=== PATIENT | female | born 1945 | race Caucasian/White ===

== ENCOUNTER → 2017-01-02 | Outpatient (CLI) | payer MEDICARE, OTHER ==
--- NOTE | 2017-01-02 09:46 | CT ---
EXAM DESCRIPTION: Chest w/Contrast CLINICAL HISTORY: OTHER DISORDERS OF LUNG COMPARISON: November 09, 2015. TECHNIQUE: Post contrasted multidetector CT imaging of the chest. Multiplanar reconstructions were provided. FINDINGS: No axillary or supraclavicular lymphadenopathy. There are a few small lymph nodes seen within the mediastinum. The pulmonary artery is enlarged measuring 3.1 cm in diameter. The ascending aorta is near aneurysmal measuring 3.8 cm in diameter. Coronary artery disease noted. No pericardial disease. The heart size is normal. Trachea is midline and unremarkable. Moderate paraseptal and centrilobular emphysema. Evidence of prior granulomatous disease. Seen within the lateral aspect of the right lower lobe is a soft tissue nodule abutting the pleura. The prior study it measured 16 mm in diameter and on today's exam it measures 16 mm in diameter. Upper abdomen demonstrates no acute findings. IMPRESSION: All findings are stable when compared to November 09, 2015. There remains evidence of prior granulomatous disease with a combination of soft tissue nodules and calcified nodules. The largest nodule is seen within the right lower lobe and measures 16 mm in diameter. This has remained stable. Moderate emphysema noted along with probable pulmonary artery hypertension. Near aneurysmal dilatation of the ascending aorta. It measures 3.8 cm in diameter. 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
== END | disposition home or self-care (01) ==
LOC: CT 08:17
PROVIDERS: ATTEND Nurse Practitioner Family
DX: J98.4 Other disorders of lung (principal)

== ENCOUNTER → 2017-02-18 | Outpatient (CLI) | payer MEDICARE, OTHER | LOC: GMA 22:11 | PROVIDERS: ATTEND Nurse Practitioner Family | DX: N39.0 Urinary tract infection, site not specified (principal) ==

== ENCOUNTER 2017-02-20 11:06 | Inpatient (IN) | payer MEDICARE, OTHER ==
[2017-02-20] MEDS ORDERED: IPRATROPIUM/ALBUTEROL 3 ML VIAL NEB ONE (11:30)
--- NOTE | 2017-02-20 11:53 | RAD ---
Study: Frontal and Lateral Views of the Chest. Indication: sob, cough Comparison: CT January 02, 2017. Findings: Mildly megaly. Atherosclerosis aorta. Emphysema. Calcified granulomas throughout the lungs. Right lung base nodule redemonstrated and better characterized on the previous CT. It appears grossly stable. No new consolidations, pleural effusion, pneumothorax. Degenerative changes of the spine noted. Osteopenia. If this is a new finding, DEXA scan recommended as well as evaluation for possible osteoporosis treatment. Electronically signed by: Dann Gomez MD 02/20/2017 11:52 AM CDT
[2017-02-20] MEDS ORDERED: cefTRIAXone SODIUM 1 GM in SODIUM CHL 0.9% 50ML MIN-BAG+ 50 ML IVPB ONE (12:54)
[2017-02-20] MEDS ORDERED: AZITHROMYCIN IV 500 MG in SODIUM CHLORIDE 0.9% 250ML 250 ML IVPB ONE (12:55)
[2017-02-20] MEDS ORDERED: methylPREDNISolone SODIUM SUC 40 MG/ML VIAL IV ONE (12:55)
--- NOTE | 2017-02-20 13:02 | ED.PDOC ---
History of Present Illness - General Chief Complaint: Respiratory Problem Stated Complaint: shortness of breath,cough Time Seen by Provider: 02/20/17 11:07 Source: patient Exam Limitations: no limitations - History of Present Illness Initial Comments: the patient is a 72-year-old female presenting to the emergency room secondary to coughing episodes along with shortness of breath and mild generalized weakness progressive over the last week. She saw her primary care doctor approximately 36 hours ago and received a steroid shot and a prescription for Omnicef which she has started. She is not reporting fevers. She is reporting significant coughing spells. Her oxygen saturations dropped down to 82-84% with activity. At rest she is 88-90% sitting up. Lying back that drops down lower. She does have shortness of breath with activity. No chest pain. No syncope. She does have a moderately productive sputum. She does have a history of COPD but does not have oxygen at home. On exam she does have scattered wheezes. She also has rails consistent with pneumonia to the left midlung possibly in the lingular area. There is mild increased work of breathing. Timing/Duration: unsure Severity: moderate Improving Factors: nothing Worsening Factors: nothing Associated Symptoms: cough, loss of appetite, malaise, shortness of breath Allergies/Adverse Reactions: Allergies NO KNOWN ALLERGY Allergy (Verified 01/21/13 14:58) Home Medications: Ambulatory Orders Citalopram Hydrobromide [Celexa] 20 mg PO DAILY 10/18/13 Zolpidem Tartrate [Ambien] 10 mg PO PRN 10/18/13 Albuterol Inhaler [Ventolin Hfa Inhaler] 1 puff INH PRN 12/31/15 Alendronate Sodium [Fosamax] 70 mg PO WKLY 12/31/15 Ascorbic Acid [Vitamin C] 500 mg PO DAILY 12/31/15 B-Complex Vitamins [Vitamin B Complex] 1 tab PO DAILY 12/31/15 Budesonide Nebs [Pulmicort Respules] 1 ml INH BID 12/31/15 Calcium Carbonate-Vitamin D [Calcium + D3 600-200 mg-Unit] 1 tab PO DAILY Meloxicam [Mobic] 15 mg PO DAILY 12/31/15 Probiotic Product [Probiotic Daily] 1 cap PO DAILY 12/31/15 Vitamin E 400 unit PO BID 12/31/15 Review of Systems - Review of Systems Constitutional: States: malaise, weakness EENTM: States: no symptoms reported Respiratory: States: cough, short of breath, wheezing Cardiology: States: no symptoms reported Gastrointestinal/Abdominal: States: no symptoms reported Genitourinary: States: no symptoms reported Musculoskeletal: States: no symptoms reported Skin: States: no symptoms reported Neurological: States: no symptoms reported Endocrine: States: no symptoms reported All other Systems: No Change from Baseline Past Medical History (General) - Patient Medical History Hx Asthma: No Hx of COPD: Yes Hx Congestive Heart Failure: No Hx Hypertension: No Hx Diabetes: No Hx MRSA: Yes - Wound 2013 MRSA Source:: Wound Surgical History: no surgical history - Vaccination History Hx Tetanus, Diphtheria Vaccination: Yes Hx Influenza Vaccination: Yes Hx Pneumococcal Vaccination: Yes - Social History Hx Tobacco Use: Yes Family Medical History - Family History Mother Family History: No Known Physical Exam - Physical Exam General Appearance: Alert, Ill Appearing Eye Exam: bilateral normal Ears, Nose, Throat: normal ENT inspection, normal pharynx Neck: non-tender, full range of motion, supple Respiratory: chest non-tender, other - mild increased work of breathing. Rails to the left midlung. Scattered rhonchi and fine wheezes. Moderately decreased air movement bilaterally. Cardiovascular/Chest: normal peripheral pulses, regular rate, rhythm, no edema Peripheral Pulses: radial,right: 2+, radial,left: 2+, dorsalis pedis,right: 2+, dorsalis pedis,left: 2+ Gastrointestinal/Abdominal: non tender, soft Rectal Exam: deferred Back Exam: normal inspection, no CVA tenderness, no vertebral tenderness Extremity: normal range of motion, non-tender, normal inspection, no pedal edema , no calf tenderness, normal capillary refill Neurologic: alert, normal mood/affect, oriented x 3 Skin Exam: normal color Comments: Vital Signs - 24 hr 02/20/17 02/20/17 02/20/17 11:24 11:49 12:04 Temperature 96.7 F L Pulse Rate [ 82 75 Left Brachial] Respiratory 20 20 20 Rate Blood Pressure 123/89 146/79 [Left Arm] O2 Sat by Pulse 89 L 100 Oximetry Progress - Progress Progress: 02/20/17 13:03 the patient is a 72-year-old female presenting with what appears to be a COPD exacerbation and possibly the start of a left midlung pneumonia. The patient is being placed on Rocephin and azithromycin. She received a DuoNeb treatment. She has been placed on oxygen. Blood cultures have been performed. Sputum culture is pending. The patient will be admitted due to oxygen requirement and the fact that she has failed outpatient treatment. Monitor closely. - Results/Orders Results/Orders: Laboratory Tests 02/20/17 02/20/17 11:50 11:50 WBC 8.5 RBC 4.48 Hgb 13.9 Hct 41.5 MCV 92.5 MCH 31.0 MCHC 33.5 RDW 12.5 Plt Count 242 MPV 7.3 L Absolute Neuts (auto) 4.70 Absolute Lymphs (auto) 1.30 Absolute Monos (auto) 0.70 Absolute Eos (auto) 1.80 H Absolute Basos (auto) 0.10 Neutrophils % 55.1 Lymphocytes % 14.7 L Monocytes % 7.9 Eosinophils % 21.4 H Basophils % 0.9 Sodium 137 Potassium 3.8 Chloride 100 L Carbon Dioxide 30 Anion Gap 10.8 L BUN 12 Creatinine 0.60 BUN/Creatinine Ratio 20.0 Random Glucose 104 Serum Osmolality 273.9 L Calcium 9.3 Total Bilirubin 0.4 AST 24 ALT 20 Alkaline Phosphatase 56 Creatine Kinase 194 H CK-MB (CK-2) 4.1 CK-MB (CK-2) % 2.11 Troponin I < 0.02 B-Natriuretic Peptide 8.6 Serum Total Protein 6.7 Albumin 4.1 Globulin 2.6 Albumin/Globulin Ratio 1.6 chest x-ray is consistent with COPD. Departure - Departure Clinical Impression: COPD with acute exacerbation Pneumonia Qualifiers: Pneumonia type: due to unspecified organism Laterality: left Lung location: unspecified part of lung Qualified Code(s): J18.9 - Pneumonia, unspecified organism Disposition: Admit Patient Departure Forms: ED Discharge - Pt. Copy, Patient Portal Self Enrollment Referrals: Jarrod Vazquez MD [Primary Care Provider] - 1-2 Weeks Home Medications: Ambulatory Orders Citalopram Hydrobromide [Celexa] 20 mg PO DAILY 10/18/13 Zolpidem Tartrate [Ambien] 10 mg PO PRN 10/18/13 Albuterol Inhaler [Ventolin Hfa Inhaler] 1 puff INH PRN 12/31/15 Alendronate Sodium [Fosamax] 70 mg PO WKLY 12/31/15 Ascorbic Acid [Vitamin C] 500 mg PO DAILY 12/31/15 B-Complex Vitamins [Vitamin B Complex] 1 tab PO DAILY 12/31/15 Budesonide Nebs [Pulmicort Respules] 1 ml INH BID 12/31/15 Calcium Carbonate-Vitamin D [Calcium + D3 600-200 mg-Unit] 1 tab PO DAILY Meloxicam [Mobic] 15 mg PO DAILY 12/31/15 Probiotic Product [Probiotic Daily] 1 cap PO DAILY 12/31/15 Vitamin E 400 unit PO BID 12/31/15 Decision To Admit - Decistion To Admit Decision to Admit Reason: Medical Nature Decision to Admit Date: 02/20/17 Decision to Admit Time: 13:04
[2017-02-20] MEDS ORDERED: SODIUM CHL 0.9% 50ML MIN-BAG+ 50 ML IVPB ONE (13:07)
[2017-02-20] MEDS ORDERED: cefTRIAXone SODIUM 1 GM VIAL ONE (13:07)
--- NOTE | 2017-02-20 13:31 | HP ---
SUPERVISING PHYSICIAN: Marko Tate M.D. CHIEF COMPLAINT: Shortness of breath and cough. HISTORY OF PRESENT ILLNESS: Ms. Sharp is a 72 year-old female patient that presented to the Emergency Department complaining of a severe coughing episode that resulted in severe shortness of breath along with generalized weakness that had progressively worsened over the last week. She was seen in the clinic on Thursday the for similar symptoms for which she was given an injection of Rocephin and started on a course of antibiotics to include Omnicef. She notes that she has not had any fevers but she is continuing to have severe coughing spells with now purulent sputum. In the Emergency Room, her oxygenation levels showed to be anywhere from 82 to 84% with activity on room air. She denied any chest pains or syncopal episodes. She does have a significant history of chronic obstructive pulmonary disease but currently does not wear oxygen at home. She does smoke tobacco currently but is unable to do so in the last week due to her current illness. It was noted in the Emergency Department that her O2 saturations on room air was in the 80s and she was having some scattered inspiratory and expiratory wheezing. Chest x-ray completed per radiology interpretation demonstrated no new consolidations or pleural effusions or pneumothoraxes. The patient was afebrile and had a white count of 8.5 without a left shift. Again, the patient has a moderate chronic obstructive pulmonary disease and has been failing to respond to outpatient treatment therapy, including Albuterol treatments and antibiotics. The patient now is to be admitted to the Medical/Surgical floor for continuation of treatment and further evaluation for concern for early development of pneumonia, likely community acquired. She was admitted in stable condition. PAST MEDICAL HISTORY: 1. Congestive heart failure, diastolic, unknown etiology, likely secondary to underlying chronic obstructive pulmonary disease with last documented echocardiogram in November 2015 showing an ejection fraction of 60% 2. Chronic obstructive pulmonary disease. 3. Diverticulosis. 4. Osteoarthritis. 5. Menopause. 6. Seasonal allergies. 7. Chronic insomnia. PAST SURGICAL HISTORY: 1. Bilateral cataract removal in 2005 with lens implants. 2. Tubal ligation. 3. Tonsillectomy and adenoidectomy as a child. HOME MEDICATIONS: 1. Ambien 10 mg daily. 2. Celexa 20 mg daily. 3. Pulmicort Respules 1 mL inhaled twice daily. 4. Albuterol inhaler 1 puff inhaled p.r.n. ALLERGIES: NO KNOWN DRUG ALLERGIES. FAMILY HISTORY: Father at age 91 secondary to kidney failure. Mother at age 76, unknown reasons. 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 She lives in [place] and is . She currently smokes tobacco anywhere from 1/2 to 1 pack per day and only drinks on an occasional social basis. REVIEW OF SYSTEMS: CONSTITUTIONAL: Notes that she has had some general malaise and weakness. HEENT: Notes that she has some nasal congestion with sinus drainage and some problems with seasonal allergies. RESPIRATORY: As noted in the history of present illness, significant for increasing cough, shortness of breath, wheezing and productive sputum. CARDIOVASCULAR: Denies any chest pains, palpitations or syncopal episodes. GASTROINTESTINAL: Denies any nausea, vomiting or diarrhea. GENITOURINARY: Was recently treated for a urinary tract infection in the last week, but cultures showed to be without any growth. She denies any dysuria or other urinary symptoms. NEUROLOGIC: She denies any changes in vision, headaches or syncopal episodes. PHYSICAL EXAMINATION: VITAL SIGNS: Temperature 96.7, pulse 82, blood pressure 120/89, respirations showing 20 to 22 with some obvious shortness of breath and wheezing with O2 saturations showing 88 to 89% on room air. Admission weight 75.5 kg. GENERAL: The patient appears to be somewhat anxious but in no acute distress on admission to the Medical/Surgical floor. She does appear ill-appearing but is alert. HEENT: Tympanic membranes bilaterally are clear. Oropharynx is pink and moist without any lesions. NECK: No jugular venous distention. Neck is supple, non-tender with full range of motion. CHEST: Notable for increased work of breathing with some rales to the left upper mid lung with some scattered rhonchi and faint wheezing noted more so on expiratory than inspiratory with some moderate decreased air movement bilaterally. CARDIOVASCULAR: Regular rate and rhythm without appreciable murmurs, gallops, or rubs. ABDOMEN: Soft, non-tender. Positive bowel sounds. EXTREMITIES: No clubbing, cyanosis or edema. NEUROLOGIC: She is alert and oriented times three. LABORATORY: CBC shows a white count 8.5, hemoglobin 13.9, hematocrit 41.5, platelet count 242,000. Differential shows to be without a left shift, however there is noted elevated lymphocytes and eosinophils. Chemistries show normal electrolytes with potassium 3.8, BUN 12, creatinine 0.6, glucose 104, calcium 9.3, magnesium 2.0. Liver functions showed to be within normal limits. Cardiac enzymes showed troponin less than 0.02. BNP was 8.6. Urinalysis showed greater than 3 of protein, moderate amount of blood. Microscopic revealed 3 to 5 RBCs, otherwise within normal limits. MICROBIOLOGY: MRSA surveillance culture is pending. Blood culture is pending. Sputum culture is pending. RADIOLOGY: Per radiology interpretation shows a right lung base nodule that was re-demonstrated on previous CT, appears to be grossly stable. There is no new consolidation, pleural effusions or pneumothoraxes. There was noted degenerative changes within the spine. ASSESSMENT: 1. Acute exacerbation of chronic obstructive pulmonary disease having failed to respond to outpatient treatment plan with concerns for early pneumonia , specifically lingular with the patient having been recently treated with antibiotics. 2. Hypoxemia as noted on initial admission vital signs likely contributed to early development of pneumonia and exacerbation of her chronic obstructive pulmonary disease as noted in number 1. 3. Eosinophilia noted on differential possibly secondary to chronic seasonal allergies. 4. History of diverticulosis without any current evidence of acute diverticulitis. 5. Osteoarthritis. 6. Osteopenia as noted on radiographic studies with the patient being of menopausal age and having previously been treated with Fosamax. 7. Seasonal allergies, chronic. 8. Chronic insomnia. 9. Chronic tobacco abuse. 10. Depression and anxiety. PLAN: The patient will be admitted to the Medical/Surgical floor for continuation of treatment for concerns for development of early pneumonia, likely community acquired as the patient has failed to respond to outpatient treatment plan. She will be started on antibiotics to include Rocephin and Azithromycin parenterally along with aggressive pulmonary hygiene to include DuoNeb treatments and chronic physiotherapy. She will also be started on some Mucinex cough suppressant with Tessalon Perles. Will start her on DVT prophylaxis and continue her home medications once they have been updated and verified in the medical records. Anticipate length of stay to be 2 to 3 days. Until then, will continue to monitor the patient closely and treat appropriately. #[id number] [facility]
[2017-02-20] MEDS ORDERED: AZITHROMYCIN IV 500 MG VIAL IVPB ONE (13:47)
[2017-02-20] MEDS ORDERED: SODIUM CHLORIDE 0.9% 250ML 250 ML ONE (13:47)
[2017-02-20] MEDS ORDERED: ACETAMINOPHEN 325 MG TAB PO PRN (14:52)
[2017-02-20] MEDS ORDERED: SODIUM CHLORIDE 0.9% (FLUSH) 10 ML SYG IV PRN (14:52)
[2017-02-20] MEDS ORDERED: ALBUTEROL SULFATE 2.5 MG/3 ML VIAL NEB PRN (14:52)
[2017-02-20] MEDS ORDERED: IV SET AND CAP CHANGE INJ INJ SCH (15:00)
--- NOTE | 2017-02-20 15:04 | PCM.CORE ---
Physician DVT/VTE - Nurse DVT Assessment & Total Each Risk Factor Represents 3 Points: Medical PT with Hx of CO, CHF, Severe infection/sepsis Each Risk Factor Represents 2 Points: Age 60-74 Each Risk Factor is 1 Point: Hx of Inflammatory Bowel Disease, Obesity (BMI >25) , Serious Lung disease (pnemonia <1month, COPD, emphysema,etc) DVT Assessment Score: 8 - 5 or more Very High Risk Treatments: Early Ambulation *, Sequential Compression Device Pharmacological: Enoxaparin 40mg SQ Daily
[2017-02-20] MEDS: IPRATROPIUM/ALBUTEROL 3 ML VIAL INH SCH ×2 (16:19→20:43)
[2017-02-20] MEDS ORDERED: methylPREDNISolone SODIUM SUC 40 MG/ML VIAL IV SCH (18:00)
[2017-02-20] MEDS ORDERED: PANTOPRAZOLE SODIUM IV 40 MG VIAL ONE (19:53)
[2017-02-20] MEDS ORDERED: ENOXAPARIN SODIUM 40 MG/0.4 ML SYG SUBCU ONE (19:53)
[2017-02-20] MEDS ORDERED: guaiFENesin ER TAB 600 MG TAB ONE (19:53)
[2017-02-20] MEDS: BIFIDOBACTERIUM INFANTIS 4 MG CAP PO SCH (20:30)
[2017-02-20] MEDS: guaiFENesin ER TAB 600 MG TAB PO SCH (20:31)
[2017-02-20] MEDS: ENOXAPARIN SODIUM 40 MG/0.4 ML SYG SUBCU SCH (20:31)
[2017-02-20] MEDS: BUDESONIDE NEBS 0.25 MG/2 ML INH INH SCH (20:43)
[2017-02-20] MEDS: SODIUM CHLORIDE 0.9% (FLUSH) 10 ML SYG IV SCH (20:44)
[2017-02-20] MEDS: ZOLPIDEM TARTRATE 10 MG TAB PO PRN (21:36)
[2017-02-20] MEDS: BENZONATATE PERLES 100 MG CAP PO PRN (21:36)
[2017-02-21] MEDS: methylPREDNISolone SODIUM SUC 40 MG/ML VIAL IV SCH ×4 (00:46→18:51)
[2017-02-21] MEDS: PANTOPRAZOLE SODIUM IV 40 MG VIAL IV SCH (06:09)
--- NOTE | 2017-02-21 06:37 | RAD ---
EXAM: Two view chest. INDICATION: Chest pain. COMPARISON: Chest x-ray: 02/20/2017. FINDINGS: Cardiac silhouette: Unremarkable. Angely: Unremarkable. Lobar consolidation: None. Pleural effusion: None. Pneumothorax: None. Other: There are scattered calcified granulomas. The lungs are emphysematous. Bones: Unremarkable. Other: None. IMPRESSION: Emphysematous appearing lungs Electronically signed by: Mauricio Fitzgerald MD 02/21/2017 6:35 AM CDT
[2017-02-21] MEDS: IPRATROPIUM/ALBUTEROL 3 ML VIAL INH SCH ×5 (07:20→20:37)
[2017-02-21] MEDS: BUDESONIDE NEBS 0.25 MG/2 ML INH INH SCH ×3 (07:20→20:37)
[2017-02-21] MEDS ORDERED: CITALOPRAM HBR 20 MG TAB ONE (07:23)
[2017-02-21] MEDS: CITALOPRAM HBR 20 MG TAB PO SCH (08:44)
[2017-02-21] MEDS: guaiFENesin ER TAB 600 MG TAB PO SCH ×2 (08:44→21:00)
[2017-02-21] MEDS: BIFIDOBACTERIUM INFANTIS 4 MG CAP PO SCH (08:44)
[2017-02-21] MEDS: SODIUM CHLORIDE 0.9% (FLUSH) 10 ML SYG IV SCH ×2 (08:44→21:00)
[2017-02-21] MEDS ORDERED: cefTRIAXone SODIUM 1 GM VIAL ONE (12:04)
[2017-02-21] MEDS ORDERED: SODIUM CHL 0.9% 50ML MIN-BAG+ 50 ML IVPB ONE (12:04)
[2017-02-21] MEDS: cefTRIAXone SODIUM 1 GM in SODIUM CHL 0.9% 50ML MIN-BAG+ 50 ML IVPB SCH (12:23)
[2017-02-21] MEDS ORDERED: SODIUM CHLORIDE 0.9% 250ML 250 ML ONE (12:42)
[2017-02-21] MEDS ORDERED: AZITHROMYCIN IV 500 MG VIAL IVPB ONE (12:43)
[2017-02-21] MEDS: AZITHROMYCIN IV 500 MG in SODIUM CHLORIDE 0.9% 250ML 250 ML IVPB SCH (13:56)
--- NOTE | 2017-02-21 15:28 | PN ---
DATE: 02/21/17 SUPERVISING PHYSICIAN: Jarrod Vazquez M.D. SUBJECTIVE: The patient is doing better today. She feels like she is breathing much better compared to admission. She remains afebrile. She has had no nausea, vomiting or diarrhea. She has actually been ambulating without any difficulty, although her admission studies show that she does desaturate somewhat. Please refer to that report for full details. OBJECTIVE: VITAL SIGNS: Temperature 98.7, pulse 104, blood pressure 133/81, respirations 20, satting 89 to 90% on room air with nasal cannula showing 92% at 2 liters. I's and O's show a positive balance of 340 with 1040 in, 700 out. Weight is 75.5 kg. GENERAL: The patient appears to be in no distress. She is alert. CHEST: Lungs are much more aerated today. She remains somewhat diminished towards the bases more so notable on the right posterior aspect compared to the left with no obvious wheezing or rhonchi. HEART: Regular rate and rhythm. ABDOMEN: Soft, non-tender. Positive bowel sounds. EXTREMITIES: No clubbing, cyanosis or edema. NEUROLOGIC: She is alert and oriented times three. LABORATORY: White count remains within normal limits with a white count of 7.5 , hemoglobin 13.3, hematocrit 40.1, platelet count 235,000. She does show a left shift today. Chemistries show normal electrolytes with potassium 4.2, BUN 14, creatinine 0.75, calcium 9.3. MICROBIOLOGY: Sputum culture is pending. Blood cultures are negative after 24 hours. RADIOLOGY: Repeat chest x-ray two view per radiology interpretation this morning shows emphysematous-appearing lungs. No pleural effusions or lobar consolidations noted. ASSESSMENT: 1. Acute exacerbation of chronic obstructive pulmonary disease having failed to respond to outpatient treatment plan with concerns for developing early pneumonia likely community acquired specifically in the lingular area left lung with the patient recently being treated with antibiotics in the outpatient setting. 2. Hypoxemia on admission and continued despite continuation of steroids with again concerns possibly contributed to the development of early pneumonia with exacerbation of her chronic obstructive pulmonary disease as noted in number 1. 3. Eosinophilia, resolved, now shows a left shift. 4. History of diverticulosis without any current evidence of acute diverticulitis. 5. Osteoarthritis. 6. Osteopenia as noted on radiographic studies with the patient being of menopausal age and having previously been treated with Fosamax. 7. Seasonal allergies, chronic. 8. Chronic insomnia. 9. Chronic tobacco abuse. 10. History of depression and anxiety. PLAN: The patient is progressing well clinically. Will continue with antibiotics parenterally to include Rocephin and azithromycin today, and slowly taper her Solu-Medrol to a p.o. prednisone starting tomorrow. Anticipate possible discharge tomorrow to continue in the outpatient setting with p.o. antibiotics to include continued azithromycin and a third generation cephalosporin. Will plan to reevaluate in the morning with follow laboratory studies and clinically. Until discharge, will continue to monitor the patient closely and treat appropriately. #[id number] [facility]
[2017-02-21] MEDS: ENOXAPARIN SODIUM 40 MG/0.4 ML SYG SUBCU SCH (21:00)
[2017-02-21] MEDS: ZOLPIDEM TARTRATE 10 MG TAB PO PRN (21:38)
[2017-02-22] MEDS: PANTOPRAZOLE SODIUM IV 40 MG VIAL IV SCH (06:38)
[2017-02-22] MEDS: BENZONATATE PERLES 100 MG CAP PO PRN (06:45)
[2017-02-22] MEDS: BUDESONIDE NEBS 0.25 MG/2 ML INH INH SCH (07:20)
[2017-02-22] MEDS: IPRATROPIUM/ALBUTEROL 3 ML VIAL INH SCH ×2 (07:20→11:51)
[2017-02-22] MEDS ORDERED: SODIUM CHL 0.9% 50ML MIN-BAG+ 50 ML IVPB ONE (07:23)
[2017-02-22] MEDS ORDERED: SODIUM CHLORIDE 0.9% 250ML 250 ML ONE (07:23)
[2017-02-22] MEDS ORDERED: AZITHROMYCIN IV 500 MG VIAL IVPB ONE (07:24)
[2017-02-22] MEDS ORDERED: cefTRIAXone SODIUM 1 GM VIAL ONE (07:24)
[2017-02-22] MEDS: BIFIDOBACTERIUM INFANTIS 4 MG CAP PO SCH (08:42)
[2017-02-22] MEDS: CITALOPRAM HBR 20 MG TAB PO SCH (08:42)
[2017-02-22] MEDS: SODIUM CHLORIDE 0.9% (FLUSH) 10 ML SYG IV SCH (08:42)
[2017-02-22] MEDS: guaiFENesin ER TAB 600 MG TAB PO SCH (08:42)
[2017-02-22] MEDS: cefTRIAXone SODIUM 1 GM in SODIUM CHL 0.9% 50ML MIN-BAG+ 50 ML IVPB SCH ×2 (09:56→12:40)
[2017-02-22 10:28] VITALS: BP 149/85; TEMP 98.1
[2017-02-22] MEDS: AZITHROMYCIN IV 500 MG in SODIUM CHLORIDE 0.9% 250ML 250 ML IVPB SCH (10:36)
[2017-02-22 11:51] VITALS: O2SAT 93
--- NOTE | 2017-02-23 09:00 | DS ---
SUPERVISING PHYSICIAN: Jarrod Vazquez MD DISCHARGE DIAGNOSIS: 1. Acute exacerbation of chronic obstructive pulmonary disease having failed to respond to outpatient treatment plan with concerns for early pneumonia , likely community acquired, specifically in the lingular area of the left lung with the patient having been recently treated with antibiotics in the outpatient setting, showing improvement after inpatient treatment with parenteral antibiotics. 2. Hypoxemia, on admission and continued, although showing improvement with steroids, again, with concerns for underlying pneumonia with exacerbation of her chronic obstructive pulmonary disease as noted in #1. 3. Eosinophilia, unknown etiology, though it resolved with initially the patient showing a left shift at time of discharge. 4. History of diverticulosis without any current evidence of acute diverticulitis. 5. Osteoarthritis. 6. Osteopenia as noted on radiographic studies on admission with the patient being of menopausal age and having previously been treated with Fosamax. 7. Seasonal allergies. 8. Chronic insomnia. 9. Chronic tobacco abuse. 10. History of depression and anxiety. HISTORY OF PRESENT ILLNESS: Ms. Sharp is a 72-year-old, female patient that presented to the Emergency Department complaining of a severe coughing episode that resulted in severe shortness of breath along with generalized weakness that had progressively worsened over the previous week prior to admission. She was seen in the clinic on 02/18/17, for similar symptoms for which she was given an injection of Rocephin and started on a course of antibiotics to include Omnicef. She notes that she has not had any fevers, but she continued to have severe coughing spells with purulent looking sputum prior to admission. In the Emergency Room, her oxygenation levels were anywhere from 82 to 84% with activity on room air. She denied any chest pains or syncopal episodes. She does have a significant history of chronic obstructive pulmonary disease, but currently does not wear oxygen at home. She does smoke tobacco currently, but is unable to do so in the last week due to her current illness. It was noted in the Emergency Department that her O2 saturations on room air was in the 80s and she was having some scattered inspiratory and expiratory wheezing. Chest x-ray completed per radiology interpretation demonstrated no new consolidations or pleural effusions or pneumothoraxes. The patient was afebrile and had a white count of 8.5 without a left shift. Again, the patient has a moderate chronic obstructive pulmonary disease and has been failing to respond to outpatient treatment therapy, including albuterol treatments and antibiotics. The patient was to be admitted to the Medical/Surgical floor for continuation of treatment and further evaluation for concern for early development of pneumonia, likely community acquired. She was admitted in stable condition. LABORATORY: White count remained within normal limits through admission and discharge and at discharge was 7.5. Hemoglobin and hematocrit remained stable at 13.3 and 40.1 at discharge. Platelet count 235,000. Differential initially did show eosinophilia with 21% eosinophils on admission. However, this transitioned to a left shift prior to discharge. Chemistries showed normal electrolytes on admission with potassium 3.8, carbon dioxide 30, BUN 12, creatinine 0.6, calcium 9.3, magnesium 2.0. Liver functions within normal limits. She had a slightly elevated CPK of 194. Urinalysis showed greater than 300 protein with moderate amount of blood and microscopic revealed 3 to 5 RBCs. MICROBIOLOGY: Sputum culture was submitted and showed normal tonya at 24 hours. MRSA surveillance showed no growth at 48 hours. Two sets of blood cultures remained negative at 48 hours. RADIOLOGY: Initial chest x-ray in the Emergency Room showed no consolidations or pleural effusions, just a right lung mass, nodule that had been previously seen on CT that appears to be stable. Repeat chest x-ray, two view, again showed no consolidations, just some emphysematous appearing lungs per radiology interpretation. HOSPITAL COURSE: Ms. Sharp was admitted to the hospital as noted in history of present illness. She was started on antibiotics to include Rocephin and azithromycin. She was also started on Solu-Medrol as she was having some obvious wheezing on admission. She was hemodynamically stable at time of admission and at time of discharge. Her blood pressure was slightly elevated at 149/85 with a pulse 96, but she was satting 95% on room air. She did have ambulatory studies completed during her stay with concern for need for oxygen on discharge. Final ambulation study noted she was satting 88% on O2, but she had been walking on her own prior to this. During ambulation, she actually increased to 90% and after 6 minutes ambulation, was at 92% on 2 liters. On the morning, it was felt she had clinically improved enough to continue with outpatient treatment plan. PLAN: Ms. Sharp was discharged on 02/22/17 with instructions to call Dr. Vazquez' office on Thursday to schedule an appointment within the next 7 days, or sooner if needed. She was to resume her home medications as instructed and start all new prescriptions as directed. She was encouraged to increase her activity to help improve lung function and to return to the hospital should she have any failure in her condition or any worsening of her symptoms. At discharge, she was given prescriptions to include: 1. Albuterol inhaler 1 puff inhaled as needed q.4h., #1. 2. Proventil nebulizers 2.5 mg inhaled 4 times daily as needed, #30. 3. Azithromycin 250 mg daily for 2 days. 4. Cefdinir 300 mg twice daily, #14. 5. Tessalon Perles 200 mg 3 times a day as needed, #15. 6. Align 4 mg daily, #30. 7. Guaifenesin 600 mg twice daily, #28. 8. Medrol Dosepak 4 mg 1 pack to take as directed. All other medications were resumed as previous to hospitalization. Diet at discharge was regular. Activity was to increase as tolerated. Condition on discharge was stable. #[id number] [facility]
== END 2017-02-22 13:00 | disposition home or self-care (01) | DRG 190 ==
LOC: ER 11:06 → MS 13:30 → OBSVTOIN 13:30
PROVIDERS: ADMIT Nurse Practitioner Family; ATTEND Nurse Practitioner Family
DX: J44.0 Chronic obstructive pulmonary disease with (acute) lower respiratory infection (principal); J18.9 Pneumonia, unspecified organism; I50.30 Unspecified diastolic (congestive) heart failure; J44.1 Chronic obstructive pulmonary disease with (acute) exacerbation; R09.02 Hypoxemia; D72.1 Eosinophilia; K57.30 Diverticulosis of large intestine without perforation or abscess without bleeding; M19.90 Unspecified osteoarthritis, unspecified site; M85.80 Other specified disorders of bone density and structure, unspecified site; J30.2 Other seasonal allergic rhinitis; G47.00 Insomnia, unspecified; F32.9 Major depressive disorder, single episode, unspecified; F41.9 Anxiety disorder, unspecified; F17.210 Nicotine dependence, cigarettes, uncomplicated; Z79.1 Long term (current) use of non-steroidal anti-inflammatories (NSAID); Z79.899 Other long term (current) drug therapy

== ENCOUNTER → 2017-04-01 | Outpatient (CLI) | payer MEDICARE, OTHER ==
--- NOTE | 2017-04-01 12:41 | MAM ---
EXAM DESCRIPTION: Screening Mammogram,Bilateral CLINICAL HISTORY: 72 years, Female, Screening mammogram COMPARISON: March 26, 2016 TECHNIQUE: CC and MLO digital mammograms with computer aided detection. FINDINGS: There are scattered fibroglandular densities. There is no dominant mass nor any suspicious microcalcifications. Benign microcalcifications are present. IMPRESSION: BI-RADS 2: BENIGN FOLLOW-UP: Routine mammography screening. Electronically signed by: Xiang Workman MD 04/01/2017 12:40 PM CDT
== END | disposition home or self-care (01) ==
LOC: MAMMO 08:40
PROVIDERS: ATTEND Family Medicine
DX: Z12.31 Encounter for screening mammogram for malignant neoplasm of breast (principal)

== ENCOUNTER → 2017-04-08 | Outpatient (CLI) | payer MEDICARE, OTHER ==
--- NOTE | 2017-04-10 09:46 | MRI ---
EXAM DESCRIPTION: Thoracic Spine w/o Contrast CLINICAL HISTORY: INTERVERTERAL DISC DISORDERS WITH RADICULOPATHY COMPARISON: None Available. TECHNIQUE: MRI of the thoracic spine is performed according to our usual protocol with axial and sagittal multi sequence imaging. FINDINGS: There is a mild compression fracture of T6 with no significant retropulsion. This results in edema the marrow. Remaining vertebral body heights are unremarkable. Marrow signal is unremarkable. AP alignment is normal. There are a few small posterior disc protrusions, but no spinal canal or neuroforaminal narrowing. There is no significant neuroforaminal narrowing within the thoracic spine. IMPRESSION: 1. Today's exam demonstrates an acute to subacute mild compression fracture of T6 with no considerable retropulsion. This likely accounts for patient's back pain and radiculopathy. 2. No spinal canal or neuroforaminal narrowing at any level on today's study. Electronically signed by: Herbert Mcintyre MD 04/10/2017 9:47 AM CDT
== END | disposition home or self-care (01) ==
LOC: MRI 07:44
PROVIDERS: ATTEND Family Medicine
DX: M51.14 Intervertebral disc disorders with radiculopathy, thoracic region (principal)

== ENCOUNTER 2017-07-11 20:15 | Emergency (ER) | payer MEDICARE, OTHER ==
[2017-07-11] MEDS ORDERED: methylPREDNISolone SODIUM SUC 125 MG/2 ML VIAL IV ONE (20:20)
[2017-07-11] MEDS ORDERED: SODIUM CHL 0.9% 50ML VIAL 12 ML, ALBUTEROL SULFATE NEBS 7.5 MG NEB ONE ×2 (20:22)
[2017-07-11] MEDS ORDERED: ALBUTEROL SULFATE 2.5 MG/3 ML VIAL NEB ONE (20:23)
[2017-07-11] MEDS ORDERED: SODIUM CHLORIDE 0.9% 1000ML 1,000 ML IVS ONE (20:30)
[2017-07-11] MEDS ORDERED: KETAMINE HCL 100 MG/ML VIAL IV ONE (20:39)
[2017-07-11] MEDS ORDERED: fentaNYL CITRATE INJ 50 MCG/ML AMP ONE ×4 (21:00→21:43)
[2017-07-11] MEDS ORDERED: VECURONIUM BROMIDE 10 MG VIAL IV ONE (21:00)
[2017-07-11] MEDS ORDERED: MIDAZOLAM INJ 5 MG/5 ML VIAL ONE (21:00)
[2017-07-11] MEDS ORDERED: WATER FOR INJ 10 ML VIAL INJ ONE (21:00)
[2017-07-11] MEDS ORDERED: ETOMIDATE INJECTION 2 MG/ML 20ML VIAL IV ONE (21:04)
[2017-07-11] MEDS ORDERED: fentaNYL CITRATE INJ 50 MCG/ML AMP IV ONE ×4 (21:06→23:08)
[2017-07-11] MEDS ORDERED: MIDAZOLAM INJ 5 MG/5 ML VIAL IV ONE ×2 (21:06→21:11)
[2017-07-11] MEDS: SUCCINYLCHOLINE CHLORIDE 200 MG/10 ML VIAL IV ONE ×2 (21:17→21:30)
[2017-07-11] MEDS ORDERED: SODIUM CHLORIDE 0.9% 100ML 200 ML IVPB ONE (21:20)
[2017-07-11] MEDS ORDERED: SODIUM CHLORIDE 0.9% 50ML 50 ML ONE (21:37)
[2017-07-11] MEDS ORDERED: SODIUM CHL 0.9% 250ML (AVIVA) 250 ML IVPB ONE (21:44)
--- NOTE | 2017-07-11 21:59 | ED.PDOC ---
History of Present Illness - General Chief Complaint: Respiratory Problem Stated Complaint: SOB Time Seen by Provider: 07/11/17 20:19 Source: patient, RN notes reviewed, Vital Signs reviewed, EMS notes reviewed Additional Information: Pt brought in by EMS for for SOB. Per EMS Pt had POX 95%. Pt with difficulty breathing. Diffuse wheeze. Pt given terbutaline and Albuterol en route. - History of Present Illness Timing/Duration: 4-6 hours Severity: severe Activities at Onset: none Possible Cause: smoke exposure - smokes Improving Factors: nothing Worsening Factors: movement Associated Symptoms: weakness, wheezing Respiratory Risk Factors: no cause identified Allergies/Adverse Reactions: Allergies NO KNOWN ALLERGY Allergy (Verified 07/11/17 20:35) Home Medications: Ambulatory Orders Citalopram Hydrobromide [Celexa] 20 mg PO DAILY 10/18/13 Zolpidem Tartrate [Ambien] 10 mg PO PRN 10/18/13 Albuterol Inhaler [Ventolin Hfa Inhaler] 1 puff INH PRN 12/31/15 Budesonide Nebs [Pulmicort Respules] 1 ml INH BID 12/31/15 Albuterol Inhaler [Ventolin Hfa Inhaler] 1 puff INH PRN PRN #1 inh 02/22/17 Albuterol Sulfate Nebs [Proventil Nebs] 2.5 mg INH QID PRN #30 vial 02/22/17 Azithromycin 250 mg PO DAILY #2 tab 02/22/17 Benzonatate Perles [Tessalon Perles] 200 mg PO TID PRN #15 02/22/17 Bifidobacterium Infantis [Align] 4 mg PO DAILY #30 02/22/17 Cefdinir [Omnicef] 300 mg PO BID #14 cap 02/22/17 guaiFENesin ER TAB [Mucinex Tab] 600 mg PO BID #28 02/22/17 methylPREDNISolone TAB [Medrol Tab] 4 mg PO DAILY #1 pack 02/22/17 Review of Systems - Review of Systems Constitutional: States: weakness Respiratory: States: short of breath, wheezing Cardiology: States: no symptoms reported Gastrointestinal/Abdominal: States: no symptoms reported Genitourinary: States: no symptoms reported Musculoskeletal: States: no symptoms reported Skin: States: no symptoms reported Neurological: States: anxiety Endocrine: States: no symptoms reported Hematologic/Lymphatic: States: no symptoms reported Past Medical History (General) - Patient Medical History Hx Seizures: No Hx Stroke: No Hx Dementia: No Hx Asthma: No Hx of COPD: Yes Hx Cardiac Disorders: No Hx Congestive Heart Failure: No Hx Pacemaker: No Hx Hypertension: No Hx Thyroid Disease: No Hx Diabetes: No Hx Gastroesophageal Reflux: No Hx Renal Disease: No Hx Cancer: No Hx of HIV: No Hx Hepatitis C: No Hx MRSA: Yes - Wound 2013 MRSA Source:: Wound Surgical History: no surgical history - Vaccination History Hx Tetanus, Diphtheria Vaccination: Yes Hx Influenza Vaccination: Yes Hx Pneumococcal Vaccination: Yes - Social History Hx Tobacco Use: Yes Hx Chewing Tobacco Use: No Hx Alcohol Use: No Hx Substance Use: No Hx Substance Use Treatment: No Hx Depression: No Feels Threatened In Home Enviroment: No Feels Threatened In a Relationship: No Hx Physical Abuse: No Hx Emotional Abuse: No Hx Suspected Abuse: No Family Medical History - Family History Mother Family History: No Known Physical Exam - Physical Exam General Appearance: Anxious, Ill Appearing Eyes, Ears, Nose, Throat Exam: PERRL/EOMI, normal ENT inspection Neck: non-tender, full range of motion, supple Respiratory: decreased breath sounds, accessory muscle use, wheezing Cardiovascular/Chest: tachycardia - 110 bpm Gastrointestinal/Abdominal: soft Extremity: normal range of motion, non-tender Neurologic: no motor/sensory deficits, alert Skin Exam: normal color Progress - Progress Progress: 07/11/17 22:15 Attempted to stabilize with continuous Albuterol and then transitioned to BiPap 10/5. Pt unable to tolerate this, decision made to intubate and mechanically ventilate for failure to ventilate. 07/11/17 22:22 Post-intubation Versed 2 mg/hr, Fentanyl 150 mcg/hr. - Results/Orders Results/Orders: 07/11/17 20:45 Arterial Blood Gas Stat 07/11/17 22:21 Arterial Blood Gas Stat Laboratory Results - last 24 hr 07/11/17 07/11/17 07/11/17 20:40 20:40 21:50 WBC 13.7 H RBC 4.53 Hgb 13.5 Hct 41.2 MCV 90.9 MCH 29.7 MCHC 32.7 L RDW 13.4 Plt Count 300 MPV 6.9 L Absolute Neuts (auto) 5.50 Absolute Lymphs (auto) 4.90 H Absolute Monos (auto) 1.20 H Absolute Eos (auto) 2.10 H Absolute Basos (auto) 0.10 Neutrophils % 39.8 L Lymphocytes % 35.7 Monocytes % 8.4 Eosinophils % 15.3 H Basophils % 0.8 pCO2 82 H* pO2 276 H* HCO3 24.9 ABG pH 7.110 L* ABG O2 Saturation 99.6 H ABG Base Excess -5.4 ABG Deoxyhemoglobin 0.4 Oxyhemoglobin % 99.8 H Carboxyhemoglobin % 0.8 Methemoglobin % Sat 0.0 Calc Total Hemoglobin 10.3 L Sodium 137 Potassium 3.9 Chloride 103 Carbon Dioxide 26 Anion Gap 11.9 L BUN 18 Creatinine 0.74 BUN/Creatinine Ratio 24.3 H Random Glucose 154 H Serum Osmolality 278.8 Calcium 8.8 Total Bilirubin 0.5 AST 20 ALT 14 Alkaline Phosphatase 55 Creatine Kinase 197 H CK-MB (CK-2) 6.1 H* CK-MB (CK-2) % 3.10 Troponin I 0.02 C-Reactive Protein < 0.5 B-Natriuretic Peptide 16.5 Serum Total Protein 6.5 Albumin 4.0 Globulin 2.5 Albumin/Globulin Ratio 1.6 Procedures - Intubation Time of Intubation: 21:20 Intubation Method: orotracheal Tube Size (cm): 7.0 Medications: Succinylcholine, Versed Breath Sounds after Intubation: equal Intubation Complications: no complications - other than initial DL unsuccessful , reattempted with Glidescope with success. Post Intubation Xray: No - confirmation with color change and equal breaths. Departure - Departure Clinical Impression: Respiratory distress, COPD with exacerbation Time of Disposition: 22:25 Disposition: Discharge to Home or Self Care Departure Forms: ED Discharge - Pt. Copy, Patient Portal Self Enrollment Referrals: Jarrod Vazquez MD [Primary Care Provider] - 1-2 Weeks Home Medications: Ambulatory Orders Citalopram Hydrobromide [Celexa] 20 mg PO DAILY 10/18/13 Zolpidem Tartrate [Ambien] 10 mg PO PRN 10/18/13 Albuterol Inhaler [Ventolin Hfa Inhaler] 1 puff INH PRN 12/31/15 Budesonide Nebs [Pulmicort Respules] 1 ml INH BID 12/31/15 Albuterol Inhaler [Ventolin Hfa Inhaler] 1 puff INH PRN PRN #1 inh 02/22/17 Albuterol Sulfate Nebs [Proventil Nebs] 2.5 mg INH QID PRN #30 vial 02/22/17 Azithromycin 250 mg PO DAILY #2 tab 02/22/17 Benzonatate Perles [Tessalon Perles] 200 mg PO TID PRN #15 02/22/17 Bifidobacterium Infantis [Align] 4 mg PO DAILY #30 02/22/17 Cefdinir [Omnicef] 300 mg PO BID #14 cap 02/22/17 guaiFENesin ER TAB [Mucinex Tab] 600 mg PO BID #28 02/22/17 methylPREDNISolone TAB [Medrol Tab] 4 mg PO DAILY #1 pack 02/22/17 Critical Care Note - Critical Care Note Total Time (mins): 120 - Severe Respiratory Distress Comments: Required intubation and Mech Vent. Transfer to Outside Facility - Transfer Information Accepting Facility: [facility] Reason for Transfer: ICU
[2017-07-11] MEDS ORDERED: MIDAZOLAM INJ 25 MG in SODIUM CHLORIDE 0.9% 50ML 25 ML IVPB SCH (22:10)
--- NOTE | 2017-07-11 23:00 | RAD ---
EXAM DESCRIPTION: Chest,1 View CLINICAL HISTORY: 72 years Female post-intubation COMPARISON: 02/21/2017 FINDINGS: Cardiac size is within normal limits. Calcified aorta. ET tube is above the level the quincy. There appear to be changes from vertebroplasty. There is methylmethacrylate to the left of the thoracic spine in uncertain location. Two linear areas extending cephalad from the vertebroplasty likely along the tracts of the vertebroplasty needles. Small amount of atelectasis or infiltrate is present in the lung bases. Calcified granulomata are noted. IMPRESSION: Endotracheal tube above the level the quincy Small amount of patchy atelectasis or developing infiltrate in the lung bases Vertebroplasty changes in the midthoracic spine with methylmethacrylate in the paraspinous tissues to the left of the midline. Location of this is uncertain based on chest x-ray Electronically signed by: Maggie Yang 07/11/2017 10:59 PM CDT
[2017-07-12 04:32] VITALS: BP 123/93; TEMP 96.9
[2017-07-12 04:54] VITALS: O2SAT 100
== END 2017-07-11 23:15 | disposition home or self-care (01) ==
LOC: ER 20:15
DX: J44.1 Chronic obstructive pulmonary disease with (acute) exacerbation (principal); Z87.891 Personal history of nicotine dependence
CPT/HCPCS: 31500; 36415; 36600; 71010; 80053; 82550; 82553; 82803; 82805; 83880; 84484; 85025; 86140; 92950; 94002; 94644; 94660; A4216; J0330; J2060; J2250; J2930; J3010; J7030; J7050; J7611

== ENCOUNTER → 2017-08-20 | Outpatient (CLI) | payer MEDICARE, OTHER | END | disposition home or self-care (01) | LOC: GMAJ 11:51 | PROVIDERS: ATTEND Family Medicine | DX: I25.10 Atherosclerotic heart disease of native coronary artery without angina pectoris (principal) ==

== ENCOUNTER → 2018-04-19 | Outpatient (CLI) | payer MEDICARE, OTHER | LOC: GMAJ 10:45 | PROVIDERS: ATTEND Family Medicine | DX: Z79.899 Other long term (current) drug therapy (principal) ==

== ENCOUNTER → 2018-04-28 | Outpatient (CLI) | payer MEDICARE, OTHER ==
--- NOTE | 2018-04-28 08:47 | MRI ---
EXAM DESCRIPTION: Lumbar Spine w/o Contrast CLINICAL HISTORY: LOW BACK PAIN COMPARISON: None Available. TECHNIQUE: MRI of the lumbar spine is performed according to our usual protocol with axial and sagittal multi sequence imaging. FINDINGS: Sagittal T2 images reveal decreased signal intensity consistent with desiccation of the intervertebral discs at all lower thoracic and lumbar levels. Posterior annular bulges are most prominent at L1-2 through L5-S1. No prevertebral mass or aneurysm. Lower cord and conus appear normal. Tip of the conus is behind L1. On sagittal images, the spinal canal appears stenotic due to posterior annular bulges at L2-3 through L4-5. Sagittal T1 images reveal benign marrow signal characteristics. Normal T1 signal intensity and appearance of the lower cord and conus. Sagittal STIR images are negative for marrow edema within the vertebral bodies or posterior elements. No paraspinous fluid collection or cystic lesion. Axial T1 and T2-weighted images were obtained to evaluate the disc levels. T12-L1: Mild diffuse posterior annular bulge without significant spinal stenosis or neural foraminal narrowing. Facets appear mildly degenerated. L1-2: Moderate diffuse posterior annular bulge with mild narrowing of the spinal canal. There is severe narrowing of the left more than right subarticular recesses. No significant neural foraminal narrowing. Moderate facet degenerative changes are seen with thickening of the ligamentum flavum. L2-3: Severe diffuse posterior annular bulge is seen with narrowing of the AP diameter of spinal canal to approximately 1 cm. There is marked facet degenerative change with thickened ligamentum flavum narrowing the mediolateral width of the canal to 7 mm. Severe narrowing of subarticular recesses is seen affecting the descending L3 nerve roots. Sagittal images show moderately severe left neural foraminal narrowing with mild neural foraminal narrowing on the right. L3-4: Moderately severe diffuse posterior annular bulge is seen narrowing the AP diameter of the spinal canal to approximately 1 cm. Marked facet hypertrophic changes seen narrowing the medial lateral width of the canal to 6 mm. There is severe bilateral subarticular recess narrowing affecting the descending L4 nerve roots. Sagittal images show mild left neural foraminal narrowing. L4-5: Moderate diffuse posterior bulge is seen narrowing the AP diameter of the spinal canal to 1.25 cm. Facet hypertrophic changes are seen with thickened ligamentum flavum narrowing the mediolateral width of the canal to 7 mm. There is moderately severe subarticular recess narrowing with mild upper lateral recess compromise. Sagittal images show mild bilateral neural foraminal narrowing. L5-S1: Mild to moderate diffuse posterior annular bulge without focal herniation. No significant spinal stenosis or neural foraminal narrowing. Marked facet hypertrophic changes are seen with spurring, increased fluid in the joint space and marked ligamentum flavum thickening. There is moderate narrowing and subarticular recesses with mild upper lateral recess compromise. Upper sacrum appears intact. Degenerative changes are seen at the SI joints. No retroperitoneal mass or aneurysm. IMPRESSION: Chronic-appearing diffuse annular bulges with moderate spinal stenosis at L3-4, L4-5 and L5-S1 levels as described. Electronically signed by: Lavell Sawant MD 04/28/2018 8:46 AM CDT
== END ==
LOC: MRI 07:58
PROVIDERS: ATTEND Family Medicine
DX: M51.26 Other intervertebral disc displacement, lumbar region (principal)

== ENCOUNTER → 2019-03-04 | Outpatient (CLI) | payer MEDICARE, OTHER ==
--- NOTE | 2019-03-04 14:11 | CT ---
EXAM DESCRIPTION: Chest w/o Contrast : Computed Tomography. CLINICAL HISTORY: 74 years Female LUNG NODULE COMPARISON: CT scan of the chest with IV contrast 01/02/2017. TECHNIQUE: Spiral-axial scans at 5 x 5 mm intervals through the lungs and thorax without IV contrast. 2.5 x 5 mm lung algorithm axial reconstructions. Coronal and sagittal 2.0 Mm reconstructions. No adverse reactions. Total Exam DLP: 419.15 mGy-cm. This exam was performed according to our departmental dose-optimization program which includes automated exposure control, adjustment of the mA and/or kV according to patient size and/or use of iterative reconstruction technique; to reduce radiation dose to as low as reasonably achievable (ALARA). Nodule measurements under 10 mm are given as mean value of 3 axes diameters. FINDINGS: Lungs and large airways: 4 mm partially calcified nodule circumscribed margins again seen in the posterior inferior lateral lingula anterior to the major fissure on axial series 4, image 66. Hounsfield density +700. Circumscribed nodule abutting the pleura in the anterior lateral right lower lobe, posterior to the major fissure with Hounsfield density +31 and dimensions 1.5 x 1.3 x 1.6 cm. Stable size and density since the prior study. 6 mm calcified nodule abutting the major fissure and lateral superior segment of the right lower lobe on axial series 4, image 68 stable since the prior study. Stable calcified nodule abutting the pleura posterior right lower lobe on image 82. Stable calcified 5 mm nodule in the base of the right upper lobe abutting the horizontal fissure on image 57 and 58. Abutting this nodule is a second smaller 4 mm calcified nodule abutting the pleura also associated with the fissure, stable since the prior study. Stable 4 mm calcified nodule abutting the lateral left major fissure and pleura in the superior segment lateral aspect left lower lobe on image 41. 3 calcified nodules 3 mm diameter or less circumscribed margins in the central left lower lobe. Bilateral upper lobe emphysematous blebs and bulla abutting the pleura with fewer blebs in the central parenchyma. Pleural spaces: Multifocal pleural thickening otherwise negative. Mediastinum and Angely: Evaluation limited due to lack of IV contrast. Lymph nodes are not enlarged. No dominant soft tissue masses. Great vessels and Heart: Atherosclerotic calcification proximal brachiocephalic vessels, aortic arch and descending thoracic aorta, and coronary vessels. Soft tissues of neck base, axillae, and chest wall: Evaluation limited due to lack of IV contrast. Negative. Upper abdomen: Included peritoneal space is unremarkable. Gallbladder partially visualized. Normal size and density of the adrenal glands. Possible small hiatal hernia. Osseous structures: Partial compression type vertebral body fracture T7 with vertebral body augmentation since the prior study. Spondylosis at multiple levels of the lower thoracic and upper lumbar spine with lower thoracic levoscoliosis. No lytic or blastic lesions. IMPRESSION: 1. 1.6 x 1.5 cm soft tissue nodule again visualized in the lateral right lower lobe subpleural lung abutting the pleura. No change in size or density since the prior study. Multiple bilateral calcified nodules also stable. Stable paraseptal emphysema involving the upper lung balderas primarily. No new abnormal nodules, no new abnormal masses or infiltrates. Optional follow-up chest CT scan with or without IV contrast in 18-24 months interval. Electronically signed by: Jagdish Romo MD 03/04/2019 2:09 PM CDT
== END ==
LOC: CT 08:43
PROVIDERS: ATTEND Internal Medicine
DX: R91.1 Solitary pulmonary nodule (principal); J43.9 Emphysema, unspecified

== ENCOUNTER → 2019-03-31 | Outpatient (CLI) | payer MEDICARE, OTHER ==
--- NOTE | 2019-04-01 12:48 | MAM ---
EXAM DESCRIPTION: 3D Screening BILATERAL : Digital Mammography. CLINICAL HISTORY: 74 years Female ANNUAL SCREENING . No complaints. No personal or family history of breast cancer. Childbirth. Postmenopausal 20+ years. No HRT. Lifetime risk of developing breast cancer (Tyrer-Cuzick model)(%): 3.4. COMPARISON: prior. No prior reports available. TECHNIQUE: Bilateral CC and MLO projection full-field images, digital tomosynthesis mammographic technique. Bilateral digital 2-D full-field MLO images. CAD not available for tomosynthesis or 2-D images. FINDINGS: The breast parenchymal density pattern is: Scattered areas of fibroglandular density. No skin thickening or nipple retraction. Bilateral solitary microcalcifications. Right axillary lymph nodes. No new focal, stellate mass or density, focal asymmetry , and no suspicious microcalcifications bilaterally. Stable mammograms compared to prior study. Taking into account, differences in mammographic technique. IMPRESSION: Benign exam. BIRAD CATEGORY: 2 BENIGN FINDINGS. RECOMMENDATIONS: FOLLOW UP: Routine digital bilateral mammographic screening, one year interval from March 2019. Written communication explaining the IMPRESSION and follow-up, will be mailed to the patient and referring health care provider. The FINDINGS and the FOLLOW-UP plan were reviewed in person with the patient after the examination. According to the [employer], yearly mammograms are recommended starting at age 40 and continuing as long as a woman is in good health. Any breast change noted on a breast self-exam should be reported promptly to the patient's healthcare provider. Breast MRI is recommended for women with an approximately 20-25% or greater lifetime risk of breast cancer, including women with a strong family history of breast or ovarian cancer and women who have been treated for Hodgkin's disease. A negative mammographic report should not delay tissue diagnosis in patients with significant clinical history or physical findings. Extremely dense breast tissue limits the sensitivity of digital mammography. Electronically signed by: Jagdish Romo MD 04/01/2019 12:46 PM CDT
== END ==
LOC: MAMMO 08:58
PROVIDERS: ATTEND Family Medicine
DX: Z12.31 Encounter for screening mammogram for malignant neoplasm of breast (principal)

== ENCOUNTER → 2019-06-09 | Outpatient (CLI) | payer MEDICARE, OTHER ==
--- NOTE | 2019-06-09 15:01 | US ---
EXAM DESCRIPTION: Abdomen,Complete: Ultrasound. CLINICAL HISTORY: RUQ PAIN COMPARISON: None Available. TECHNIQUE: Transabdominal scanning: grayscale and Doppler modes. FINDINGS: Gallbladder: Normal size with no intraluminal stones or sludge. Normal wall thickness 2.6 mm with no fluid. Nontender with transducer pressure. Common bile duct: 4.8 mm normal caliber. Liver: Long axis right lobe is 14.3 cm. Diffuse increased echogenicity. No focal lesions. Focal echogenic object, with acoustic shadowing subcapsular right lobe measuring 8.8 x 7.6 mm. Portal vein and normal caliber with hepatopedal flow. Normal caliber of the ducts. Smooth capsule with no ascites. Pancreas: Echogenic. Normal size. Duct not seen.. Abdominal aorta: Normal caliber from the proximal segment to the distal bifurcation. IVC: visualized; normal caliber. Spleen normal echogenicity; long axis measurement is 9.6 cm. Right kidney: 8.3 cm long axis. Normal thickness and echogenicity of the cortex. No hydronephrosis, no echogenic stones, no perirenal fluid. Left kidney: 10.4 cm long axis. Normal thickness of the cortex, increased echogenicity. No hydronephrosis, no echogenic stones, no perirenal fluid. IMPRESSION: 1. Steatosis of the liver but no focal lesions. Subcentimeter right lobe calcification. Normal ducts and portal vein. Smooth capsule with no ascites. Echogenic pancreas probably fatty. No duct not seen. Normal gallbladder and normal caliber of the common bile duct. 2. Normal caliber of the abdominal aorta and IVC. Spleen is unremarkable. 3. Normal size bilateral kidneys, normal thickness of the cortex bilaterally. Echogenic left renal cortex could indicate early disease in the kidney. No hydronephrosis bilaterally. Electronically signed by: Jagdish Romo MD 06/09/2019 3:00 PM CDT
== END ==
LOC: US 09:00
PROVIDERS: ATTEND Family Medicine
DX: K76.0 Fatty (change of) liver, not elsewhere classified (principal)

== ENCOUNTER → 2020-02-21 | Outpatient (CLI) | payer MEDICARE, OTHER ==
--- NOTE | 2020-02-21 09:30 | CT ---
EXAM DESCRIPTION: Chest w/o Contrast CLINICAL HISTORY: 75 years Female, SOLITARY NODULE OF LUNG COMPARISON: CT chest dated 03/04/2019 and 01/02/2017. TECHNIQUE: Contiguous thin section axial images through the chest were obtained without the administration of intravenous contrast. Sagittal and coronal reconstructions were reviewed. FINDINGS: The visualized thyroid gland and supraclavicular region appear normal. Few subcentimeter lymph nodes are noted in the mediastinum. No abnormally enlarged bilateral hilar lymphadenopathy. Few subcentimeter lymph nodes are noted in the bilateral axillary regions. Trachea is midline and the central tracheobronchial tree is patent. Significant scarring is noted in the bilateral lung apices, slightly worse on the right side. Mild emphysema. Calcified nodules are again identified in the right upper lobe on image #63 6.1 mm calcified nodule is identified in the right lower lobe on image #72. 1.7 cm pleural-based nodule is again identified in the right lower lobe on image #84. Pleural-based 4 mm nodule is noted in the posterior segment of the right lower lobe on image #84. Calcified and partially calcified nodules are again identified in the left lung, unchanged compared to prior examination. No evidence of pleural effusions. The heart is normal in size with small pericardial effusion. Borderline aneurysmal dilatation of the ascending aorta measuring up to 4 cm. The superior vena cava is normal in size and caliber. Moderate coronary artery atherosclerosis. The esophagus appears normal throughout its visualized length. Limited evaluation of the upper abdomen demonstrates no gross abnormality. Moderate to severe degenerative changes are identified throughout the visualized spine. Changes of kyphoplasty of the midthoracic vertebral body with extrusion of segment into the pedicles. IMPRESSION: 1. Stable bilateral calcified granulomas compared to prior examination dated 01/02/2017. Stable 1.7 cm pleural based nodule in the right lower lobe compared to 01/02/2017. 2. Emphysema with biapical scarring. 3. Borderline aneurysmal dilatation of the ascending aorta measuring upto 4 cm. This exam was performed according to our departmental dose-optimization program, which includes automated exposure control, adjustment of the mA and/or kV according to patient size and/or use of iterative reconstruction technique. Electronically signed by: Lisandra Ruffin MD 02/21/2020 9:28 AM CDT
== END ==
LOC: CT 09:00
PROVIDERS: ATTEND Internal Medicine
DX: R91.1 Solitary pulmonary nodule (principal); J98.4 Other disorders of lung; J43.9 Emphysema, unspecified; I77.810 Thoracic aortic ectasia

== ENCOUNTER → 2020-07-06 | Outpatient (CLI) | payer MEDICARE, OTHER ==
--- NOTE | 2020-07-09 18:59 | MRI ---
Study: MRI of the Right Knee. Indication: PAIN IN RIGHT KNEE Technique: Multiplanar, multi sequence MRI of the right knee was obtained without intravenous contrast. Comparison: None. Findings: ACL, PCL, and lateral collateral ligament complex intact. MCL is lax and bowed indicating sequela of a prior MCL sprain. No acute tear. Reactive edema about the MCL. Horizontal cleavage and vertical radial tearing posterior horn and body medial meniscus with near complete transection. Body extruded by 3 mm and is expanded and degenerated. Acute subchondral fracture central aspect medial femoral condyle with surrounding marrow edema. Patchy areas of grade 3 chondrosis throughout the medial compartment with grade 2 and mild grade 3 changes lateral compartment. Free edge fraying body lateral meniscus. Tendinosis quadriceps tendon insertion. Patellar tendon intact. Patella normally located. Subtle areas of grade 2 and mild grade 3 chondrosis throughout the patellofemoral compartment. Moderate size knee effusion. Scattered subcutaneous edema about the knee. Impression: Complex multidirectional tearing posterior horn and body medial meniscus. Acute subchondral fracture medial femoral condyle. Free edge fraying body lateral meniscus. 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 Moderate size knee effusion. Additional findings as above. Electronically signed by: Dann Gomez MD 07/09/2020 6:57 PM CDT
--- NOTE | 2020-07-10 16:36 | MAM ---
EXAM DESCRIPTION: 3D Screening BILATERAL : Digital Mammography. CLINICAL HISTORY: 75 years Female ANNUAL SCREENING . No complaints and no family history breast cancer. Menarche age unknown. Childbirth age 19. Menopause age 51. Lifetime risk of developing breast cancer (Tyrer-Cuzick model)(%): 3.2. COMPARISON: Bilateral screening digital breast tomosynthesis March 2019 and 2-D digital screening bilateral mammography March 2017. TECHNIQUE: Bilateral CC and MLO projection full-field images, digital tomosynthesis mammographic technique. Bilateral digital 2-D full-field MLO images. CAD available for 2-D images. FINDINGS: The breast parenchymal density pattern is: Scattered areas of fibroglandular density. No skin thickening or nipple retraction. Solitary microcalcifications. Focal asymmetry and microcalcifications, upper outer quadrant posterior third right breast stable. No new focal, stellate mass or density, focal asymmetry , and no suspicious microcalcifications bilaterally. Stable mammograms compared to prior study. IMPRESSION: Benign exam. BIRAD CATEGORY: 2 BENIGN FINDINGS. RECOMMENDATIONS: FOLLOW UP: Routine digital bilateral mammographic screening, one year interval from July 2020. Written communication explaining the IMPRESSION and follow-up, will be mailed to the patient and referring health care provider. According to the [employer], yearly mammograms are recommended starting at age 40 and continuing as long as a woman is in good health. Any breast change noted on a breast self-exam should be reported promptly to the patient's healthcare provider. Breast MRI is recommended for women with an approximately 20-25% or greater lifetime risk of breast cancer, including women with a strong family history of breast or ovarian cancer and women who have been treated for Hodgkin's disease. A negative mammographic report should not delay tissue diagnosis in patients with significant clinical history or physical findings. Extremely dense breast tissue limits the sensitivity of digital mammography. Electronically signed by: Jagdish Romo MD 07/10/2020 4:34 PM CDT
== END ==
LOC: MRI 10:53
PROVIDERS: ATTEND Family Medicine
DX: Z12.31 Encounter for screening mammogram for malignant neoplasm of breast (principal); S83.241A Other tear of medial meniscus, current injury, right knee, initial encounter; S72.414A Nondisplaced unspecified condyle fracture of lower end of right femur, initial encounter for closed fracture; M94.261 Chondromalacia, right knee; M25.461 Effusion, right knee